=== PATIENT | male | born 1945 | race Caucasian/White ===

== ENCOUNTER 2017-11-19 09:10 | Emergency (ER) | payer MEDICARE ==
[2017-11-19 09:36] VITALS: BP 129/78
[2017-11-19] MEDS ORDERED: NS 0.9% 1000 ML* 1,000 ML IV ONE (10:25)
[2017-11-19 10:34] LABS: Hematocrit 49 % (42-52); Hemoglobin 16.7 g/dl (14.0-18.0); Mean Corpuscular HGB Conc 35 g/dl (31-36); Mean Corpuscular Hemoglobin 32 pg (27-31); Mean Corpuscular Volume 94 fL (80-94); Mean Platelet Volume 8.8 um3 (7.4-10.4); Platelet Count 176 10^3/ul (150-450); Red Blood Count 5.19 10^6/ul (4.00-5.40); Red Cell Distribution Width 14 % (10.5-15); White Blood Count 17.5 10^3/ul (3.5-10.8)
[2017-11-19 11:01] LABS: EGFR Non-African American 50.2 (>60)
[2017-11-19 11:02] LABS: ABS Basophils 0.1 10^3/ul (0-0.2); ABS Eosinophils 0 10^3/ul (0-0.6); ABS Lymphocytes 1.4 10^3/ul (1.0-4.8); ABS Monocytes 1.1 10^3/ul (0-0.8); ABS Neutrophils 14.3 10^3/ul (1.5-7.7); ABS Nucleated RBC 0 10^3/ul; Eosinophil % 0 % (0-6); Lymphocyte % 8.2 % (25-47); Nucleated Red Blood Cells % 0.1
--- NOTE | 2017-11-19 11:14 | RAD ---
INDICATION: Abdominal pain COMPARISON: None TECHNIQUE: Erect and supine views of the abdomen are submitted. FINDINGS: Bones: There are no acute bony findings. There are postoperative changes about the right hemipelvis Soft tissues: The soft tissues appear normal. The psoas margins are sharp. Bowel gas pattern: Normal Calcifications: There are no abnormal calcifications. Other: None IMPRESSION: NO ACUTE DIAGNOSTIC FINDINGS. SUGGEST FOLLOW-UP INDICATED
--- NOTE | 2017-11-19 11:17 | ED ---
Abdominal Pain/Male - HPI Summary HPI Summary: This is scribe Santos Berg documenting for attending Bang Villa MD. This patient is a 71 year old M presenting to [facility] with a chief complaint of epigastric pain since 11/14/2017. He reports that it feels like my stomach is blocked and that it feels full. Patient reports constipation, vomiting with some red tinged/dark mucous-like vomitus, no flatulence, and difficulty eating. His last bowel movement was on Thursday which was normal. Patient had an appendectomy when he was 14. He has a PMHx of diabetes, HTN, and TB (at 10yrs old ). Patient smokes less than a PPD and has smoked since he was 15. I, Dr. Villa, personally performed the services described in this documentation as scribed in my presence, and it is both accurate and complete. - History of Current Complaint Chief Complaint: EDAbdPain Stated Complaint: ABD PAIN Time Seen by Provider: 11/19/17 10:12 Hx Obtained From: Patient Onset/Duration: Sudden Onset, Lasting Days, Still Present Timing: Constant Severity Initially: Moderate Severity Currently: None Pain Intensity: 0 Pain Scale Used: 0-10 Numeric Location: Epigastric Aggravating Factor(s): Nothing Alleviating Factor(s): Nothing Associated Signs And Symptoms: Positive: Constipation, Vomiting - with some red tinged/dark mucous-like vomitus, Other - No flatulence, difficulty eating - Allergies/Home Medications Allergies/Adverse Reactions: Allergies Allergy/AdvReac Type Severity Reaction Status Date / Time No Known Allergies Allergy Verified 11/19/17 10:47 Home Medications: Home Medications Chlorthalidone TAB* [Hygroton TAB*] 50 mg PO DAILY 11/19/17 [History Confirmed 11/19/17] Insulin GLARGINE(*) [Lantus(*)] 58 units SUBCUT DAILY 11/19/17 [History Confirmed 11/19/17] Lisinopril [Zestril 40 MG-] 40 mg PO DAILY 11/19/17 [History Confirmed 11/19/17] metFORMIN* [Glucophage 500 MG TAB *] 500 mg PO QPM 11/19/17 [History Confirmed 11/19/17] PMH/Surg Hx/FS Hx/Imm Hx Opthamlomology History: Denies: Hx Legally Blind EENT History: Denies: Hx Deafness Infectious Disease History: No Infectious Disease History: Denies: Traveled Outside the [place] in Last 30 Days - Family History Known Family History: Positive: Diabetes, Other - TB - Social History Alcohol Use: None Substance Use Type: Reports: None Smoking Status (MU): Heavy Every Day Tobacco Smoker Review of Systems Negative: Fever Positive: Abdominal Pain - Epigastric pain. It feels like my stomach is blocked and it feels full. , Vomiting - vomiting with some red tinged/dark mucous- like vomitus, Other - Constipation. No flatulence. Difficulty eating. All Other Systems Reviewed And Are Negative: Yes Physical Exam - Summary Physical Exam Summary: VITAL SIGNS: Reviewed. GENERAL: Patient is a well-developed and nourished MALE who is lying comfortable in the stretcher. Patient is not in any acute respiratory distress. HEAD AND FACE: No signs of trauma. No ecchymosis, hematomas or skull depressions. No sinus tenderness. EYES: PERRLA, EOMI x 2, No injected conjunctiva, no nystagmus. EARS: Hearing grossly intact. Ear canals and tympanic membranes are within normal limits. MOUTH: Dry oral mucosa. NECK: Supple, trachea is midline, no adenopathy, no JVD, no carotid bruit, no c- spine tenderness, neck with full ROM. CHEST: Symmetric, no tenderness at palpation LUNGS: Clear to auscultation bilaterally. No wheezing or crackles. CVS: Regular rate and rhythm, S1 and S2 present, no murmurs or gallops appreciated. ABDOMEN: Lower abdominal tenderness. No signs of distention. No rebound no guarding, and no masses palpated. Bowel sounds are normal. EXTREMITIES: FROM in all major joints, no edema, no cyanosis or clubbing. NEURO: Alert and oriented x 3. No acute neurological deficits. Speech is normal and follows commands. SKIN: Dry and warm Triage Information Reviewed: Yes Vital Signs On Initial Exam: Initial Vitals Temp Pulse Resp BP Pulse Ox 96.8 F 96 21 129/78 96 11/19/17 09:26 11/19/17 09:26 11/19/17 09:26 11/19/17 09:26 11/19/17 09:26 Vital Signs Reviewed: Yes Diagnostics - Vital Signs Vital Signs Temp Pulse Resp BP Pulse Ox 11/19/17 09:26 96.8 F 96 21 129/78 96 - Laboratory Lab Results: Lab Results 11/19/17 11/19/17 11/19/17 Range/Units 10:22 10:22 10:22 WBC 17.5 H (3.5-10.8) 10^3/ul RBC 5.19 (4.00-5.40) 10^6/ul Hgb 16.7 (14.0-18.0) g/dl Hct 49 (42-52) % MCV 94 (80-94) fL MCH 32 H (27-31) pg MCHC 35 (31-36) g/dl RDW 14 (10.5-15) % Plt Count 176 (150-450) 10^3/ul MPV 8.8 (7.4-10.4) um3 Neut % (Auto) 84.9 H (38-83) % Lymph % (Auto) 8.2 L (25-47) % [place] % (Auto) 6.3 (0-7) % Eos % (Auto) 0 (0-6) % Baso % (Auto) 0.6 (0-2) % Absolute Neuts (auto) 14.3 H (1.5-7.7) 10^3/ul Absolute Lymphs (auto) 1.4 (1.0-4.8) 10^3/ul Absolute Monos (auto) 1.1 H (0-0.8) 10^3/ul Absolute Eos (auto) 0 (0-0.6) 10^3/ul Absolute Basos (auto) 0.1 (0-0.2) 10^3/ul Absolute Nucleated RBC 0 10^3/ul Nucleated RBC % 0.1 Sodium 135 (135-145) mmol/L Potassium 4.5 (3.5-5.0) mmol/L Chloride 98 L (101-111) mmol/L Carbon Dioxide 26 (22-32) mmol/L Anion Gap 11 (2-11) mmol/L BUN 32 H (6-24) mg/dL Creatinine 1.40 H (0.67-1.17) mg/dL Est GFR ( Amer) 60.8 (>60) Est GFR (Non-Af Amer) 50.2 (>60) BUN/Creatinine Ratio 22.9 H (8-20) Glucose 259 H (70-100) mg/dL Lactic Acid 1.9 (0.5-2.0) mmol/L Calcium 10.7 H (8.6-10.3) mg/dL Total Bilirubin 0.90 (0.2-1.0) mg/dL AST 16 (13-39) U/L ALT 18 (7-52) U/L Alkaline Phosphatase 74 (34-104) U/L Total Creatine Kinase 257 H (10-223) U/L Troponin I 0.02 (<0.04) ng/mL C-Reactive Protein 100.16 H (<8.01) mg/L Total Protein 7.4 (6.4-8.9) g/dL Albumin 4.3 (3.2-5.2) g/dL Globulin 3.1 (2-4) g/dL Albumin/Globulin Ratio 1.4 (1-3) Lipase 14 (11.0-82.0) U/L Blood Type Antibody Screen 11/19/17 Range/Units 10:22 WBC (3.5-10.8) 10^3/ul RBC (4.00-5.40) 10^6/ul Hgb (14.0-18.0) g/dl Hct (42-52) % MCV (80-94) fL MCH (27-31) pg MCHC (31-36) g/dl RDW (10.5-15) % Plt Count (150-450) 10^3/ul MPV (7.4-10.4) um3 Neut % (Auto) (38-83) % Lymph % (Auto) (25-47) % [place] % (Auto) (0-7) % Eos % (Auto) (0-6) % Baso % (Auto) (0-2) % Absolute Neuts (auto) (1.5-7.7) 10^3/ul Absolute Lymphs (auto) (1.0-4.8) 10^3/ul Absolute Monos (auto) (0-0.8) 10^3/ul Absolute Eos (auto) (0-0.6) 10^3/ul Absolute Basos (auto) (0-0.2) 10^3/ul Absolute Nucleated RBC 10^3/ul Nucleated RBC % Sodium (135-145) mmol/L Potassium (3.5-5.0) mmol/L Chloride (101-111) mmol/L Carbon Dioxide (22-32) mmol/L Anion Gap (2-11) mmol/L BUN (6-24) mg/dL Creatinine (0.67-1.17) mg/dL Est GFR ( Amer) (>60) Est GFR (Non-Af Amer) (>60) BUN/Creatinine Ratio (8-20) Glucose (70-100) mg/dL Lactic Acid (0.5-2.0) mmol/L Calcium (8.6-10.3) mg/dL Total Bilirubin (0.2-1.0) mg/dL AST (13-39) U/L ALT (7-52) U/L Alkaline Phosphatase (34-104) U/L Total Creatine Kinase (10-223) U/L Troponin I (<0.04) ng/mL C-Reactive Protein (<8.01) mg/L Total Protein (6.4-8.9) g/dL Albumin (3.2-5.2) g/dL Globulin (2-4) g/dL Albumin/Globulin Ratio (1-3) Lipase (11.0-82.0) U/L Blood Type O Positive Antibody Screen Pending Result Diagrams: 11/19/17 10:22 11/19/17 10:22 Lab Statement: Any lab studies that have been ordered have been reviewed, and results considered in the medical decision making process. - Radiology Abdomen X-Ray Radiology Interpretation Completed By: Radiologist - 11:11. NO ACUTE DIAGNOSTIC FINDINGS. SUGGEST FOLLOW-UP INDICATED. ED Physician has reviewed this imaging report. - CT Abd/Pelvis CT CT Interpretation Completed By: Radiologist - 1. Small, low suspicion hypervascular splenic lesion is likely an incidental finding. Suggest nonemergent follow-up sonography. 2. Small hiatal hernia. 3. Enlarged prostate. ED Physician has reviewed this imaging report. - EKG 1 Cardiac Rate: NL - 98 BPM EKG Rhythm: Sinus Rhythm EKG Interpretation: No ST elevation. Re-Evaluation - Re-Evaluation 1 Re-Evaluation Time: 14:30 Change: Improved Abdominal Pain Fem Course/Dx - Course Assessment/Plan: This patient is a 71 year old M presenting to [facility] with a chief complaint of epigastric pain since 11/14/2017. He reports that it feels like my stomach is blocked and that it feels full. Patient reports constipation, vomiting with some red tinged/dark mucous-like vomitus, no flatulence, and difficulty eating. His last bowel movement was on Thursday which was normal. Patient had an appendectomy when he was 14. He has a PMHx of diabetes, HTN, and TB (at 10yrs old). Patient smokes less than a PPD and has smoked since he was 15. WBC of 17.5, without any bandemia, BUN is steady, creatinine was 1.40, possibly secondary to dehydration. Therefore, the patient was given IV fluids. Glucose is 259. Calcium 10.7. CRP 100.1. Abdomen X-Ray: NO ACUTE DIAGNOSTIC FINDINGS. SUGGEST FOLLOW-UP INDICATED. EK BPM. Sinus Rhythm. No ST elevation. CT: 1. Small, low suspicion hypervascular splenic lesion is likely an incidental finding. Suggest nonemergent follow-up sonography. 2. Small hiatal hernia. 3. Enlarged prostate. I believe that all his symptoms are secondary to constipation because his CTs were all negative. Therefore, the patient was given Miralax and magnesium citrate, and lactrulates. However, the patient wants to take this at home because he lives 45 minutes away. The patient is feeling better. He is hemodynamically stable and he will follow up with his PCP. He is instructed to return to the ED if symptoms worsen. Diagnosis is abdominal pain and constipation. - Diagnoses Provider Diagnoses: Constipation, Lower abdominal pain, Nausea & vomiting Discharge - Sign-Out/Discharge Documenting (check all that apply): Patient Departure - D/C - Discharge Plan Condition: Stable Disposition: HOME Prescriptions: Magnesium CITRATE* [Citrate of Magnesia*] 150 ml PO SEE INSTRUCTIONS #1 btl Metoclopramide TAB* [Reglan TAB*] 10 mg PO Q8H #10 tab Polyethylene Glycol 3350* [Miralax*] 17 gm PO DAILY #12 packet Sodium Phosphate ADULT ENEMA* [Fleet Enema*] 1 enema HI BEDTIME PRN #1 btl PRN Reason: Constipation Patient Education Materials: Constipation (ED), Acute Nausea and Vomiting (ED) , Acute Abdominal Pain (ED) Referrals: Bang Andre MD [Primary Care Provider] -
[2017-11-19] MEDS ORDERED: Ondansetron INJ* 2 MG/ML VIAL IV ONE (11:24)
[2017-11-19] MEDS ORDERED: Iodixanol* (CONTRAST) 320 MG/ML 100 ML SDV IV ONE (13:40)
--- NOTE | 2017-11-19 14:04 | RAD ---
INDICATION: Abdominal pain COMPARISON: Abdomen series November 19, 2017 TECHNIQUE: Axial source images were obtained from the hemidiaphragms to the symphysis pubis following administration of oral and intravenous contrast. 114 mL Visipaque 320 was utilized. Coronal and sagittal reconstructed images were acquired. Lung bases: There is minimal right basilar atelectasis. Liver: The liver is normal in size. There is mild hepatic steatosis There are no masses. There is no ductal dilatation. Gallbladder: There are no calcified gallstones. There is no evidence of wall thickening or pericholecystic fluid. Spleen: The spleen is normal in size. Is a low suspicion hypervascular left splenic lesion measuring 1.1 cm. This is an incidental finding. Consider follow-up ultrasonography on a nonemergent basis Pancreas: There is no focal pancreatic mass or ductal dilatation. Adrenal glands: There is no evidence of adrenal mass. Kidneys: The kidneys are normal in size and position. There are prompt nephrograms and there is prompt excretion bilaterally. There are no renal parenchymal masses. There is no evidence of nephrolithiasis. Adenopathy: There is no evidence of adenopathy by size criteria. Fluid collections: There are no free or localized fluid collections. Vessels:There are atherosclerotic changes involving the aorta and iliac vessels. There is no focal aneurysm. The IVC appears normal. GI tract: There is a small hiatal hernia. The upper GI tract is otherwise unremarkable. The terminal ileum appears normal. There is moderate stool within the colon. There is appendectomy by surgical history. There are no findings of obstruction.. Pelvic organs: The prostate is enlarged measuring 4.8 x 6.5 cm. Bladder: There is extrinsic mass effect produced by the enlarged prostate. The bladder is otherwise unremarkable. Abdominal and pelvic soft tissues: The extraperitoneal abdominal and pelvic soft tissues appear normal.. Osseous structures: There are no acute osseous findings. There is degenerative disc disease at L5-S1 Other: None IMPRESSION: 1. Small, low suspicion hypervascular splenic lesion is likely an incidental finding. Suggest nonemergent follow-up sonography. 2. Small hiatal hernia. 3. Enlarged prostate.
[2017-11-19] MEDS ORDERED: Polyethylene Glycol 3350* 17 GM PACKET PO PRN (14:12)
[2017-11-19] MEDS ORDERED: Magnesium CITRATE* 300 ML BTL PO ONE (14:12)
== END 2017-11-19 15:40 | disposition home or self-care (01) ==
LOC: ED 09:10
DX: K59.00 Constipation, unspecified (principal); R10.30 Lower abdominal pain, unspecified; R10.13 Epigastric pain; R11.2 Nausea with vomiting, unspecified; K44.9 Diaphragmatic hernia without obstruction or gangrene; N40.0 Benign prostatic hyperplasia without lower urinary tract symptoms; E11.9 Type 2 diabetes mellitus without complications; Z79.4 Long term (current) use of insulin; Z79.84 Long term (current) use of oral hypoglycemic drugs; I10 Essential (primary) hypertension; F17.210 Nicotine dependence, cigarettes, uncomplicated
CPT/HCPCS: 36415; 74019; 74177; 80053; 82270; 82550; 83605; 83690; 84484; 85025; 86140; 86850; 86900; 86901; 93005; 96374; 99282; A9270-GY; J2405; Q9967

== ENCOUNTER 2024-03-25 23:43 | Inpatient (IN) ==
[2024-03-26] MEDS: Lactated Ringers 1000 ml BAG 1,000 ML IV ONE ×3 (01:43→08:57)
[2024-03-26 02:18] LABS: Hematocrit 41.2 % (38-53); Mean Corpuscular Hemoglobin 32.1 pg (27-33); Mean Corpuscular Hgb Conc 33.9 g/dL (31-36); Mean Corpuscular Volume 94.7 fL (80-97); Red Blood Count 4.36 10^6/uL (4.06-5.63); Red Cell Distribution Width 14.8 % (12-17)
[2024-03-26 02:37] LABS: Albumin/Globulin Ratio 1.8 (1-3); C Reactive Protein 3.19 mg/L (<8.01); Calcium 10.3 mg/dL (8.6-10.3); Creatinine, Serum 1.83 mg/dL (0.67-1.17); Globulin 2.2 g/dL (2-4); Magnesium 1.7 mg/dL (1.9-2.7); Potassium 3.7 mmol/L (3.5-5.0); Total Bilirubin 0.8 mg/dL (0.2-1.0); Total Protein 6.2 g/dL (6.4-8.9); eGFR CKD-EPI 37.8 (>60)
[2024-03-26 03:29] LABS: ABS Basophils 0.1 10^3/uL (0.0-0.1); ABS Eosinophils 0.1 10^3/uL (0.0-0.5); ABS Lymphocytes 0.6 10^3/uL (1.0-4.8); ABS Monocytes 0.1 10^3/uL (0.0-1.1); ABS Neutrophils 30.1 10^3/uL (1.5-7.6); Eosinophil % 0.5 %; Mean Platelet Volume 9.7 fL (7.5-11.2); Platelet Count 148 10^3/uL (150-450)
[2024-03-26 03:30] LABS: RBC Morphology Normal (Normal)
[2024-03-26] MEDS: cefTRIAXone 1 gm/50 mL D5W 1 GM/50 ML BAG IV ONE (03:33)
[2024-03-26 03:42] LABS: INR 1.23 (0.85-1.14)
[2024-03-26 03:47] LABS: Urine Appearance Turbid; Urine Bilirubin Negative (Negative); Urine Blood Trace (Negative); Urine Color Yellow; Urine Glucose Negative (Negative); Urine Ketones Negative (Negative); Urine Nitrite Negative (Negative); Urine Protein Trace (Negative); Urine Specific Gravity 1.017 (1.002-1.030); Urine Urobilinogen Negative (Negative); Urine pH 6.5 (5.0-8.0)
[2024-03-26 04:42] LABS: Urine Bacteria 1+ /HPF (Absent); Urine Red Blood Cell Trace(0-2/hpf) /HPF (0-Trace); Urine Squamous Epithelial Cell Present /HPF (Absent); Urine White Blood Cell 2+(11-20/hpf) /HPF (0-Trace)
[2024-03-26 05:00] LABS: High Sensitivity Troponin 1 Hr 1107 pg/mL (<20)
[2024-03-26] MEDS: Lactated Ringers 1000 ml BAG 500 ML IV ONE (05:14)
[2024-03-26] MEDS ORDERED: Vancomycin 1,000 MG in NS 0.9% 250 ml 250 ML IVPB ONE (06:05)
[2024-03-26] MEDS: Vancomycin 1,500 MG in NS 0.9% 250 ml 250 ML IVPB ONE (08:15)
[2024-03-26] MEDS ORDERED: Norepinephrine 4 MG/250mL D5W 0 MCG/0 ML BAG IV ONE (08:32)
[2024-03-26] MEDS: Norepinephrine 4 MG/250mL D5W 4,000 MCG/250 ML BAG IV SCH ×2 (11:15→14:50)
[2024-03-26] MEDS ORDERED: Dextrose 50% Syringe 50 ml 25 GM/50 ML SYRINGE IV PUSH PRN (11:23)
[2024-03-26] MEDS: Magnesium Sulfate 2 gm BAG 2 GM/50 ML BAG IVPB ONE (11:33)
[2024-03-26] MEDS: Enoxaparin 80 MG/0.8 ML SYR SUBCUT ONE (11:33)
[2024-03-26 11:51] LABS: PSA Screen Ultra Sensitive 7.921 ng/mL (0-4.000)
[2024-03-26] MEDS: Vitamin THERAPEUTIC TAB PO SCH (12:42)
[2024-03-27 05:36] LABS: Calcium 8.8 mg/dL (8.6-10.3); Creatinine, Serum 1.27 mg/dL (0.67-1.17); Magnesium 1.9 mg/dL (1.9-2.7); Potassium 4.1 mmol/L (3.5-5.0); eGFR CKD-EPI 58.6 (>60)
[2024-03-27 06:02] LABS: Hematocrit 38.5 % (38-53); Hemoglobin 13.1 g/dL (13.2-16.3); Mean Corpuscular Hemoglobin 32.4 pg (27-33); Mean Corpuscular Hgb Conc 34.1 g/dL (31-36); Mean Corpuscular Volume 95.1 fL (80-97); Red Blood Count 4.04 10^6/uL (4.06-5.63); Red Cell Distribution Width 14.3 % (12-17); White Blood Count 27.9 10^3/uL (3.6-10.2)
[2024-03-27 07:07] LABS: RBC Morphology Normal (Normal)
[2024-03-27 07:14] LABS: ABS Basophils 0.1 10^3/uL (0.0-0.1); ABS Eosinophils 0.2 10^3/uL (0.0-0.5); ABS Lymphocytes 1.3 10^3/uL (1.0-4.8); ABS Monocytes 0.1 10^3/uL (0.0-1.1); ABS Neutrophils 26.3 10^3/uL (1.5-7.6); Eosinophil % 0.8 %; Lymphocyte % 4.6 %; Platelet Count Platelets clumped. 10^3/uL (150-450)
[2024-03-27] MEDS: cefTRIAXone 1 gm/50 mL D5W 1 GM/50 ML BAG IV SCH (08:37)
[2024-03-27] MEDS ORDERED: Insulin GLARGINE 100 un/ml 10 ml VIAL SUBCUT SCH (09:00)
[2024-03-27] MEDS: Enoxaparin 40 MG/0.4 ML SYR SUBCUT SCH (22:36)
[2024-03-28 08:43] LABS: Hematocrit 39.4 % (38-53); Hemoglobin 13.5 g/dL (13.2-16.3); Mean Corpuscular Hemoglobin 32.4 pg (27-33); Mean Corpuscular Hgb Conc 34.3 g/dL (31-36); Mean Corpuscular Volume 94.5 fL (80-97); Mean Platelet Volume 9.9 fL (7.5-11.2); Platelet Count 113 10^3/uL (150-450); Red Blood Count 4.17 10^6/uL (4.06-5.63); White Blood Count 10.8 10^3/uL (3.6-10.2)
[2024-03-28 09:06] LABS: ABS Lymphocytes 1.6 10^3/ul (1.0-4.8); ABS Monocytes 1.1 10^3/ul (0.0-1.1); ABS Neutrophils 7.5 10^3/ul (1.5-7.6)
[2024-03-28 09:07] LABS: ABS Basophils 0.2 10^3/ul (0.0-0.1); ABS Eosinophils 0.4 10^3/ul (0.0-0.5); RBC Morphology Normal (Normal)
[2024-03-28 09:47] LABS: Calcium 9.9 mg/dL (8.6-10.3); Creatinine, Serum 1.24 mg/dL (0.67-1.17); Magnesium 1.7 mg/dL (1.9-2.7); Potassium 4.4 mmol/L (3.5-5.0); eGFR CKD-EPI 60.3 (>60)
[2024-03-28 14:40] VITALS: BP 127/76
== END 2024-03-28 15:47 | disposition home or self-care (01) | DRG 871 ==
LOC: ED 23:43 → SUATTDRO 03-26 09:58 → EDHOLD 03-26 09:58 → ICU 03-26 11:26 → MEDTELE 03-27 07:59
PROVIDERS: ADMIT Internal Medicine Critical Care Medicine; ATTEND Internal Medicine